=== PATIENT | female | born 1985 | race Caucasian/White ===

== ENCOUNTER 2022-10-01 18:50 | Emergency (ER) | payer MEDICAID ==
[2022-10-01] MEDS ORDERED: Diphtheria,Pertussis(Acell),Tetanus Vaccine 0.5 ML Syringe IM ONE (19:14)
[2022-10-02 01:46] VITALS: BP 132/72; PULSE 104
== END 2022-10-01 20:02 | disposition home or self-care (01) ==
LOC: FB.ED 18:50
DX: S91.114A Laceration without foreign body of right lesser toe(s) without damage to nail, initial encounter (principal); Z23 Encounter for immunization; W26.8XXA Contact with other sharp object(s), not elsewhere classified, initial encounter; Y93.01 Activity, walking, marching and hiking
CPT/HCPCS: 12001; 90471; 90715; 99282-25